=== PATIENT | male | born 1955 | race Caucasian/White ===

== ENCOUNTER 2017-05-11 15:52 | Emergency (ER) | payer OTHER ==
[2017-05-11 16:17] VITALS: BP 137/80; PULSE 99; TEMP 98.2; BMI 24.0
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
[2017-05-11] MEDS ORDERED: IBUPROFEN 600 MG TABLET (FP) PO ONE ×2 (16:47→16:57)
--- NOTE | 2017-05-13 10:43 | PDOC ---
Patient Follow-up (Call Back) - Post ED Follow - Up Condition at time of discharge: Stable Disposition at time of original discharge: HOME - Disposition Additional Instructions/Notes: Call from patient's pharmacy [facility] on [facility] in [place].. They did not receive Dr. Lewis prescription from yesterday for Robaxin. I tried to retransmit prescription several times but it did not go through. Gave a verbal order by phone for Robaxin 500 mg 1 twice a day dispense 14 no refills as prescribed yesterday by Dr. Lewis from the ER..
== END 2017-05-11 19:34 | disposition home or self-care (01) ==
LOC: FER 15:52
DX: S13.4XXA Sprain of ligaments of cervical spine, initial encounter (principal); V43.92XA Unspecified car occupant injured in collision with other type car in traffic accident, initial encounter; Y93.89 Activity, other specified; Y92.410 Unspecified street and highway as the place of occurrence of the external cause
CPT/HCPCS: 72125-TC; 99282-25